=== PATIENT | female | born 1985 | race Hispanic/Latino ===

== ENCOUNTER → 2016-04-07 | Outpatient (CLI) | payer OTHER ==
--- NOTE | 2016-04-07 15:08 | REP ---
TWO-VIEW CHEST: Two views. No comparison. There is no evidence of acute infiltrate. No pleural effusion is seen. The heart is normal in size. The mediastinal silhouette is unremarkable. The visualized osseous structures are intact. IMPRESSION: No acute pulmonary disease. Signed by Ernesto Hurst MD 04/07/2016 07:40 P
== END ==
LOC: M LRY 14:17
PROVIDERS: ATTEND Nurse Practitioner Family
DX: R07.89 Other chest pain (principal)
CPT/HCPCS: 71020; 86677; 93005; G0463

== ENCOUNTER → 2016-04-07 | Outpatient (REF) | payer OTHER | LOC: M SFHCLERA 14:59 | PROVIDERS: ATTEND Nurse Practitioner Family | DX: K21.9 Gastro-esophageal reflux disease without esophagitis (principal) ==

== ENCOUNTER 2016-04-24 14:25 | Emergency (ER) | payer OTHER ==
--- NOTE | 2016-04-24 17:36 | EDDOCDS ---
Physician Documentation [facility] Name: Adelaida Ackerman Age: 31 yrs Sex: Female : 1985 Arrival Date: 04/24/2016 Time: 14:25 Bed TR7 Private MD: RUBÉN Gardner Disposition: 04/24/16 17:20 Discharged to Home/Self Care. Impression: Strain of muscle, fascia and tendon at neck level - PAIN IN NECK. - Condition is Stable. - Discharge Instructions: Sore Throat. - Medication Reconciliation, Local Pharmacy Hours form. - Follow up: Emergency Department; When: As needed; Reason: Worsening of conditions. Follow up: RUBÉN Gardner; When: 2 - 3 days; Reason: Wound/Symptom Recheck, Recheck today's complaints, Continuance of care. - Problem is new. - Symptoms are unchanged. - Notes: STREP SCREEN WAS NEGATIVE TODAY. THE CULTURE WAS SENT TO THE LAB SO IF THIS IS POSITIVE IN 1-2 DAYS, YOU WILL BE NOTIFIED OF THIS. ANY WORSENING SYMPTOMS, PLEASE RETURN TO THE ER. Historical: - Allergies: PENICILLINS; - Home Meds: 1. Synthroid 25 mcg Oral tab 1 tab once daily - PMHx: Thyroid problem; - PSHx: ; - Social history: Smoking status: Patient states was never smoker of tobacco. No barriers to communication noted, The patient speaks fluent Slovak, Speaks appropriately for age. - Family history: Not pertinent. - : The pt / caregiver states he / she is not on anticoagulants. Home medication list is obtained from the patient. - Exposure Risk Screening:: None identified. 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 3 in. (160.02 cm) (R); Pain 4/10; 14:27 Body Mass Index 31.35 (80.29 kg, 160.02 cm) lr2 MDM: 14:29 ECG WITH READING ER PHYS+CARDIAG ordered. EDMS 16:54 Strep Screen, Nursing ordered. dt4 16:54 ED course: PT STATES SON DX'D WITH STREP IN ED LAST NIGHT. DAUGHTER TODAY WITH ABD dt4 PAIN, DECREASED APPETITE. PT STATES WHILE COOKING TODAY, HAD A MOMENTARY SHARP "ELECTRIC" PAIN OVER HER LEFT CHEST AND ARM THAT LASTED "LESS THAN 1 SECOND" AND THEN BEGAN "NOT FEELING WELL SINCE THEN." STATES BILATERAL ANTERIOR NECK PAIN AND ACHY. . 16:59 GATS (NEGATIVE STREP SCREEN) Ordered. EDMS 17:06 Financial registration complete. 17:20 [facility] Payment Agreement was scanned into [employer] and attached to record. Signatures: Dispatcher MedHost EDCT Sunita Watson, RN RN srm Louisa Le, Reg Reg Eda Lu RN RN kr3 Franca Robert, KAILA BRIGHT dt4 The chart was reviewed and I authenticate all verbal orders and agree with the evaluation and treatment provided.Attachments: 17:20 [facility] Payment Agreement gb MTDD
--- NOTE | 2016-04-24 17:36 | EDDOCDS ---
Nurse's Notes [facility] Name: Adelaida Ackerman Age: 31 yrs Sex: Female : 1985 Arrival Date: 04/24/2016 Time: 14:25 Bed TR7 Private MD: RUBÉN Gardner Diagnosis: Strain of muscle, fascia and tendon at neck level-PAIN IN NECK Presentation: 04/24 14:32 Presenting complaint: Patient states: WHILE COOKING 1 HOUR AGO HAD SHOOTING PAIN LEFT kr3 ARM AND INTO UPPER LEFT CHEST CHEST. pain lasted less than 1 second. Now feeling warmth and fussy in head. Achiness in neck and no pain in chest. Aspirin was not taken prior to arrival. Adult Sepsis Screening: The patient does not have new or worsening altered mentation. Patient's respiratory rate is less than 22. Systolic blood pressure is greater than 100. Patient has a qSOFA score of 0- Negative Sepsis Screen. Suicide/Homicide risk assessment- the patient denies having any suicidal and/or homicidal ideations and does not present with any other emotional, behavioral or mental health complaints. Status: The patient is a dependent. Transition of care: patient was not received from another setting of care. 14:32 Acuity: JOVANNI Level 4 kr3 14:32 Method Of Arrival: Walkin/Carried/Asstd kr3 Triage Assessment: 14:34 General: Appears in no apparent distress, comfortable, Behavior is cooperative. Pain: kr3 Location: neck Pain currently is 3 out of 10 on a pain scale. Pt Declines HIV testing. Neurological: Level of Consciousness is awake, alert. Cardiovascular: Chest pain is described as Pain is 0 out of 10 on a pain scale. radiates Does not radiate. episodes last < 1 minute began 1 hour prior to arrival. Respiratory: Respiratory effort is even, unlabored. GI: Denies nausea, vomiting. Derm: Skin is pink, warm & dry. Musculoskeletal: Range of motion intact in all extremities. 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 Synthroid 25 mcg Oral tab 1 tab once daily - PMHx: Thyroid problem; - PSHx: ; - Social history: Smoking status: Patient states was never smoker of tobacco. No barriers to communication noted, The patient speaks fluent Bulgarian, Speaks appropriately for age. - Family history: Not pertinent. - : The pt / caregiver states he / she is not on anticoagulants. Home medication list is obtained from the patient. - Exposure Risk Screening:: None identified. Screenin:33 Screening information is obtained from the patient. Fall risk: No risks identified. srm Assistance ADL's: requires no assistance with activities of daily living. Abuse/DV Screen: The patient / caregiver reports he/she is: not in a situation that causes fear, pain or injury. Nutritional screening: No deficits noted. Advance Directives: There is no active DNR order. home support is adequate. Assessment: 17:33 General: Appears in no apparent distress, Behavior is appropriate for age, cooperative. 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 pt has full ROm to arm. EENT: Reports sore throat. Cardiovascular: Rhythm is regular. Respiratory: No deficits noted. GI: No deficits noted. Derm: No deficits noted. Vital Signs: 14:27 BP 138 / 77; Pulse 73; Resp 16; Temp 97.2(T); Pulse Ox 99% on R/A; Weight 80.29 kg (R); lr2 Height 5 ft. 3 in. (160.02 cm) (R); Pain 4/10; 14:27 Body Mass Index 31.35 (80.29 kg, 160.02 cm) lr2 Vitals: 14:25 RN notified that patient meets Red Flag criteria. lr2 14:27 Log In Time: April 24, 2016 at 14:25. lr2 ED Course: 14:26 Patient visited by Barbara Barajas. lr2 14:26 Patient moved to Waiting lr2 14:28 Jj [facility] is Private Physician. lr2 14:28 Patient moved to Pre RCE lr2 14:30 Patient moved to PD2 / lr2 14:34 Triage Initiated kr3 14:38 Patient visited by Nazanin Flores PCA. ct3 14:38 Patient moved to Pre RCE kr3 14:38 EKG done. (by ED staff). Reviewed by Lin Gonzalez MD. ct3 16:19 Patient moved to Triage 3 kr3 16:37 Franca Robert PA-C is PHCP. dt4 16:37 Lin Gonzalez MD is Attending Physician. dt4 16:37 Patient visited by Franca Robert PA-C. dt4 17:02 GATS (NEGATIVE STREP SCREEN) Sent. srm 17:18 Patient name changed from Adelaida\S\\S\Tyron\S\ to Adelaida\S\Janell\S\Tyron. EDMS 17:19 Jj [facility] is Referral Physician. dt4 17:20 [facility] Payment Agreement was scanned into [employer] and attached to record. 17:32 Patient moved to [facility] kr 17:33 The patient / caregiver is instructed regarding the plan of care and ED course. srm Accompanied by Family Member, Patient has correct armband on for positive identification. Cardiac monitoring not applicable on this patient. 17:33 No IV's were initiated during this patient's visit. No procedures done that require srm assistance. Order Results: There are currently no results for this order. Outcome: 17:20 Discharge ordered by Provider. dt4 17:33 Discharge Assessment: Patient awake, alert and oriented x 3. No cognitive and/or srm functional deficits noted. Patient verbalized understanding of disposition instructions. patient administered narcotics - no. The following High Risk Discharge criteria are identified: None. Discharged to home ambulatory, with family. Condition: stable. Discharge instructions given to patient, Instructed on discharge instructions, follow up and referral plans. medication usage, Demonstrated understanding of instructions, medications, Pt was receptive of discharge instructions/ teaching. No special radiology studies were completed. Property :Personal belongings accompany Pt. 17:35 Patient left the ED. srm Signatures: Dispatcher MedHo EDAR Sunita Watson, RN RN [facility] Louisa Le, Reg Reg Eda Lu,DOMINGA RN kr3 Nazanin Flores, CLINICAL DIRECTOR CLINICAL DIRECTOR ct3 Franca Robert PA-C PA-C dt4 Barbara Barajas lr2 MTDD
--- NOTE | 2016-04-24 19:49 | ECGEPIP ---
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
--- NOTE | 2016-04-26 18:36 | EDDOCDS ---
Physician Documentation [facility] Name: Adelaida Ackerman Age: 31 yrs Sex: Female : 1985 Arrival Date: 04/24/2016 Time: 14:25 Bed TR7 Private MD: RUBÉN Gardner Disposition: 04/24/16 17:20 Discharged to Home/Self Care. Impression: Strain of muscle, fascia and tendon at neck level - PAIN IN NECK. - Condition is Stable. - Discharge Instructions: Sore Throat. - Medication Reconciliation, Local Pharmacy Hours form. - Follow up: Emergency Department; When: As needed; Reason: Worsening of conditions. Follow up: RUBÉN Gardner; When: 2 - 3 days; Reason: Wound/Symptom Recheck, Recheck today's complaints, Continuance of care. - Problem is new. - Symptoms are unchanged. - Notes: STREP SCREEN WAS NEGATIVE TODAY. THE CULTURE WAS SENT TO THE LAB SO IF THIS IS POSITIVE IN 1-2 DAYS, YOU WILL BE NOTIFIED OF THIS. ANY WORSENING SYMPTOMS, PLEASE RETURN TO THE ER. Historical: - Allergies: PENICILLINS; - Home Meds: 1. Synthroid 25 mcg Oral tab 1 tab once daily - PMHx: Thyroid problem; - PSHx: ; - Social history: Smoking status: Patient states was never smoker of tobacco. No barriers to communication noted, The patient speaks fluent Kiswahili, Speaks appropriately for age. - Family history: Not pertinent. - : The pt / caregiver states he / she is not on anticoagulants. Home medication list is obtained from the patient. - Exposure Risk Screening:: None identified. 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 3 in. (160.02 cm) (R); Pain 4/10; 14:27 Body Mass Index 31.35 (80.29 kg, 160.02 cm) lr2 MDM: 14:29 ECG WITH READING ER PHYS+CARDIAG ordered. EDMS 16:54 Strep Screen, Nursing ordered. dt4 16:54 ED course: PT STATES SON DX'D WITH STREP IN ED LAST NIGHT. DAUGHTER TODAY WITH ABD dt4 PAIN, DECREASED APPETITE. PT STATES WHILE COOKING TODAY, HAD A MOMENTARY SHARP "ELECTRIC" PAIN OVER HER LEFT CHEST AND ARM THAT LASTED "LESS THAN 1 SECOND" AND THEN BEGAN "NOT FEELING WELL SINCE THEN." STATES BILATERAL ANTERIOR NECK PAIN AND ACHY. . 16:59 GATS (NEGATIVE STREP SCREEN) Ordered. EDMS 17:06 Financial registration complete. gb 17:20 [facility] Payment Agreement was scanned into [employer] and attached to record. gb 20:14 T-Sheet-- Draft Copy was scanned into MEDHOST and attached to record. klr 04/26 10:31 ECG/EKG was scanned into MEDHOST and attached to record. lg Signatures: Dispatcher MedHost EDCA Sunita Watson, DOMINGA ORR [facility] Louisa Le, Reg Reg gb Jenifer Masterson, Reg Reg lg Eda Lu RN RN kr3 Franca Robert, KAILA PASaray isaac4 Octavia Weber The chart was reviewed and I authenticate all verbal orders and agree with the evaluation and treatment provided.Attachments: 04/24 17:20 [facility] Payment Agreement gb 20:14 T-Sheet-- Draft Copy r 04/26 10:31 ECG/EKG lg Chart Complete MTDD
--- NOTE | 2016-04-26 18:37 | EDDOCDS ---
Nurse's Notes [facility] Name: Adelaida Ackerman Age: 31 yrs Sex: Female : 1985 Arrival Date: 04/24/2016 Time: 14:25 Bed TR7 Private MD: RUBÉN Gardner Diagnosis: Strain of muscle, fascia and tendon at neck level-PAIN IN NECK Presentation: 04/24 14:32 Presenting complaint: Patient states: WHILE COOKING 1 HOUR AGO HAD SHOOTING PAIN LEFT kr3 ARM AND INTO UPPER LEFT CHEST CHEST. pain lasted less than 1 second. Now feeling warmth and fussy in head. Achiness in neck and no pain in chest. Aspirin was not taken prior to arrival. Adult Sepsis Screening: The patient does not have new or worsening altered mentation. Patient's respiratory rate is less than 22. Systolic blood pressure is greater than 100. Patient has a qSOFA score of 0- Negative Sepsis Screen. Suicide/Homicide risk assessment- the patient denies having any suicidal and/or homicidal ideations and does not present with any other emotional, behavioral or mental health complaints. Status: The patient is a dependent. Transition of care: patient was not received from another setting of care. 14:32 Acuity: JOVANNI Level 4 kr3 14:32 Method Of Arrival: Walkin/Carried/Asstd kr3 Triage Assessment: 14:34 General: Appears in no apparent distress, comfortable, Behavior is cooperative. Pain: kr3 Location: neck Pain currently is 3 out of 10 on a pain scale. Pt Declines HIV testing. Neurological: Level of Consciousness is awake, alert. Cardiovascular: Chest pain is described as Pain is 0 out of 10 on a pain scale. radiates Does not radiate. episodes last < 1 minute began 1 hour prior to arrival. Respiratory: Respiratory effort is even, unlabored. GI: Denies nausea, vomiting. Derm: Skin is pink, warm & dry. Musculoskeletal: Range of motion intact in all extremities. 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 Synthroid 25 mcg Oral tab 1 tab once daily - PMHx: Thyroid problem; - PSHx: ; - Social history: Smoking status: Patient states was never smoker of tobacco. No barriers to communication noted, The patient speaks fluent Angolan, Speaks appropriately for age. - Family history: Not pertinent. - : The pt / caregiver states he / she is not on anticoagulants. Home medication list is obtained from the patient. - Exposure Risk Screening:: None identified. Screenin:33 Screening information is obtained from the patient. Fall risk: No risks identified. srm Assistance ADL's: requires no assistance with activities of daily living. Abuse/DV Screen: The patient / caregiver reports he/she is: not in a situation that causes fear, pain or injury. Nutritional screening: No deficits noted. Advance Directives: There is no active DNR order. home support is adequate. Assessment: 17:33 General: Appears in no apparent distress, Behavior is appropriate for age, cooperative. 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 pt has full ROm to arm. EENT: Reports sore throat. Cardiovascular: Rhythm is regular. Respiratory: No deficits noted. GI: No deficits noted. Derm: No deficits noted. Vital Signs: 14:27 BP 138 / 77; Pulse 73; Resp 16; Temp 97.2(T); Pulse Ox 99% on R/A; Weight 80.29 kg (R); lr2 Height 5 ft. 3 in. (160.02 cm) (R); Pain 4/10; 14:27 Body Mass Index 31.35 (80.29 kg, 160.02 cm) lr2 Vitals: 14:25 RN notified that patient meets Red Flag criteria. lr2 14:27 Log In Time: April 24, 2016 at 14:25. lr2 ED Course: 14:26 Patient visited by Barbara Barajas. lr2 14:26 Patient moved to Waiting lr2 14:28 Jj [facility] is Private Physician. lr2 14:28 Patient moved to Pre RCE lr2 14:30 Patient moved to PD2 / lr2 14:34 Triage Initiated kr3 14:38 Patient visited by Nazanin Flores PCA. ct3 14:38 Patient moved to Pre RCE kr3 14:38 EKG done. (by ED staff). Reviewed by Lin Gonzalez MD. ct3 16:19 Patient moved to Triage 3 kr3 16:37 Franca Robert PA-C is PHCP. dt4 16:37 Lin Gonzalez MD is Attending Physician. dt4 16:37 Patient visited by Franca Robert PA-C. dt4 17:02 GATS (NEGATIVE STREP SCREEN) Sent. srm 17:18 Patient name changed from Adelaida\S\\S\Tyron\S\ to Adelaida\S\Janell\S\Tyron. EDMS 17:19 Jj [facility] is Referral Physician. dt4 17:20 [facility] [place] Agreement was scanned into ZMP and attached to record. gb 17:32 Patient moved to TR7 kr3 17:33 The patient / caregiver is instructed regarding the plan of care and ED course. srm Accompanied by Family Member, Patient has correct armband on for positive identification. Cardiac monitoring not applicable on this patient. 17:33 No IV's were initiated during this patient's visit. No procedures done that require srm assistance. 20:06 EKG-ADULT Returned. EDMS 20:14 T-Sheet-- Draft Copy was scanned into ZMP and attached to record. r 02 10:31 ECG/EKG was scanned into ZMP and attached to record. 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 dt4 17:33 Discharge Assessment: Patient awake, alert and oriented x 3. No cognitive and/or srm functional deficits noted. Patient verbalized understanding of disposition instructions. patient administered narcotics - no. The following High Risk Discharge criteria are identified: None. Discharged to home ambulatory, with family. Condition: stable. Discharge instructions given to patient, Instructed on discharge instructions, follow up and referral plans. medication usage, Demonstrated understanding of instructions, medications, Pt was receptive of discharge instructions/ teaching. No special radiology studies were completed. Property :Personal belongings accompany Pt. 17:35 Patient left the ED. srm Signatures: Dispatcher MedHost EDMS Sunita Watson, RN RN srm Louisa Le, Reg Reg gb Jenifer Masterson, Reg Reg lg Eda Lu RN RN kr3 Nazanin Flores, CRM ARCHITECT CRM ARCHITECT ct3 Franca Robert PA-C PA-C dt4 Octavia Weber Laura lr2 Chart Complete JOHNY
--- NOTE | 2016-04-26 18:37 | EDDOCDS ---
Physician Documentation [facility] Name: Adelaida Ackerman Age: 31 yrs Sex: Female : 1985 Arrival Date: 04/24/2016 Time: 14:25 Bed TR7 Private MD: RUBÉN Gardner Disposition: 04/24/16 17:20 Discharged to Home/Self Care. Impression: Strain of muscle, fascia and tendon at neck level - PAIN IN NECK. - Condition is Stable. - Discharge Instructions: Sore Throat. - Medication Reconciliation, Local Pharmacy Hours form. - Follow up: Emergency Department; When: As needed; Reason: Worsening of conditions. Follow up: RUBÉN Gardner; When: 2 - 3 days; Reason: Wound/Symptom Recheck, Recheck today's complaints, Continuance of care. - Problem is new. - Symptoms are unchanged. - Notes: STREP SCREEN WAS NEGATIVE TODAY. THE CULTURE WAS SENT TO THE LAB SO IF THIS IS POSITIVE IN 1-2 DAYS, YOU WILL BE NOTIFIED OF THIS. ANY WORSENING SYMPTOMS, PLEASE RETURN TO THE ER. Historical: - Allergies: PENICILLINS; - Home Meds: 1. Synthroid 25 mcg Oral tab 1 tab once daily - PMHx: Thyroid problem; - PSHx: ; - Social history: Smoking status: Patient states was never smoker of tobacco. No barriers to communication noted, The patient speaks fluent Latvian, Speaks appropriately for age. - Family history: Not pertinent. - : The pt / caregiver states he / she is not on anticoagulants. Home medication list is obtained from the patient. - Exposure Risk Screening:: None identified. 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 3 in. (160.02 cm) (R); Pain 4/10; 14:27 Body Mass Index 31.35 (80.29 kg, 160.02 cm) lr2 MDM: 14:29 ECG WITH READING ER PHYS+CARDIAG ordered. EDMS 16:54 Strep Screen, Nursing ordered. dt4 16:54 ED course: PT STATES SON DX'D WITH STREP IN ED LAST NIGHT. DAUGHTER TODAY WITH ABD dt4 PAIN, DECREASED APPETITE. PT STATES WHILE COOKING TODAY, HAD A MOMENTARY SHARP "ELECTRIC" PAIN OVER HER LEFT CHEST AND ARM THAT LASTED "LESS THAN 1 SECOND" AND THEN BEGAN "NOT FEELING WELL SINCE THEN." STATES BILATERAL ANTERIOR NECK PAIN AND ACHY. . 16:59 GATS (NEGATIVE STREP SCREEN) Ordered. EDMS 17:06 Financial registration complete. gb 17:20 [facility] [place] was scanned into [employer] and attached to record. gb 20:14 T-Sheet-- Draft Copy was scanned into MEDHOST and attached to record. klr 04/26 10:31 ECG/EKG was scanned into MEDHOST and attached to record. lg Signatures: Dispatcher MedHost EDNJ Sunita Watson, DOMINGA ORR [facility] Louisa Le, Reg Reg gb Jenifer Masterson, Reg Reg lg Eda Lu RN RN kr3 Franca Robert, KAILA PASaray isaac4 Octavia Weber The chart was reviewed and I authenticate all verbal orders and agree with the evaluation and treatment provided.Attachments: 04/24 17:20 [facility] [place] gb 20:14 T-Sheet-- Draft Copy r 04/26 10:31 ECG/EKG lg Chart Complete MTDD
== END 2016-04-24 17:35 | disposition home or self-care (01) ==
LOC: M ED 14:25
DX: M54.2 Cervicalgia (principal); R07.9 Chest pain, unspecified; E03.9 Hypothyroidism, unspecified; Z79.899 Other long term (current) drug therapy; Z88.0 Allergy status to penicillin

== ENCOUNTER 2016-05-08 11:12 | Emergency (ER) | payer OTHER ==
[~2016-05-08] VITALS: Ht 160 cm; Wt 80.3 kg
[2016-05-08] MEDS ORDERED: LEVO25TA5 PO (11:42)
[2016-05-08] MEDS ORDERED: RANI15TA PO (11:43)
[2016-05-08 12:02] LABS: BASO % 0.5 % (0.0-1.0); EOS # 0.1 K/mm3 (0.0-0.50); EOS % 1.7 % (0.0-3.0); LARGE UNSTAINED CELL # 0.2 K/mm3 (0.0-0.4); LARGE UNSTAINED CELL % 1.8 % (0.0-4.0); LYMPH # 1.8 K/mm3 (1.5-4.5); LYMPH % 21.5 % (24.0-44.0); MEAN CORPUSCULAR HEMOGLOBIN 28.8 pg (27.0-33.0); MEAN CORPUSCULAR HGB CONC 33.6 g/dl (32.0-36.5); MEAN CORPUSCULAR VOLUME 85.7 fl (80.0-96.0); MONO # 0.4 K/mm3 (0.0-0.8); MONO % 4.5 % (0.0-5.0); NEUTROPHILS # 5.8 K/mm3 (1.8-7.7); PLATELET COUNT, AUTOMATED 354 k/mm3 (150-450); RED CELL DISTRIBUTION WIDTH 12.5 % (11.5-14.5); WHITE BLOOD COUNT 8.3 K/mm3 (4.0-10.0)
[2016-05-08 12:15] LABS: ANION GAP 7 MEQ/L (8-16); BLOOD UREA NITROGEN 14 MG/DL (7-18); CALCIUM LEVEL 8.8 MG/DL (8.5-10.1); CARBON DIOXIDE LEVEL 26 MEQ/L (21-32); CHLORIDE LEVEL 106 MEQ/L (98-107); CREATININE FOR GFR 0.56 MG/DL (0.55-1.02); GLOMERULAR FILTRATION RATE > 60.0 (>60); GLUCOSE, FASTING 88 MG/DL (70-105); POTASSIUM SERUM 4.7 MEQ/L (3.5-5.1); SODIUM LEVEL 139 MEQ/L (136-145)
--- NOTE | 2016-05-08 12:35 | REP ---
CHEST, TWO VIEWS: COMPARISON: 04/07/2016. There is no evidence of acute infiltrate. No pleural effusion is seen. The heart is normal in size. The mediastinal silhouette is unremarkable. The visualized osseous structures are intact. IMPRESSION: No acute pulmonary disease. Signed by Ernesto Hurst MD 05/08/2016 07:59 P
[2016-05-08 12:51] VITALS: BP 113/71
--- NOTE | 2016-05-09 20:06 | ECGEPIP ---
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
== END 2016-05-08 12:55 | disposition home or self-care (01) ==
LOC: M ED 12:30
DX: R07.89 Other chest pain (principal); E78.5 Hyperlipidemia, unspecified; Z87.891 Personal history of nicotine dependence; K21.9 Gastro-esophageal reflux disease without esophagitis; E03.9 Hypothyroidism, unspecified; Z79.899 Other long term (current) drug therapy

== ENCOUNTER → 2016-09-26 | Outpatient (REF) | payer OTHER ==
[~2016-09-26] MED LIST: IBUP80TA PO; LEVO25TA5 PO; RANI15TA PO; ROBA500T PO
[2016-09-26 22:21] LABS: BASO # 0.1 K/mm3 (0.0-0.2); BASO % 1.2 % (0.0-1.0); EOS # 0.2 K/mm3 (0.0-0.50); EOS % 2.3 % (0.0-3.0); LARGE UNSTAINED CELL # 0.1 K/mm3 (0.0-0.4); LARGE UNSTAINED CELL % 1.5 % (0.0-4.0); LYMPH # 2.1 K/mm3 (1.5-4.5); LYMPH % 27.4 % (24.0-44.0); MEAN CORPUSCULAR HEMOGLOBIN 29.2 pg (27.0-33.0); MEAN CORPUSCULAR VOLUME 85.9 fl (80.0-96.0); MONO # 0.5 K/mm3 (0.0-0.8); MONO % 6.9 % (0.0-5.0); NEUTROPHILS # 4.6 K/mm3 (1.8-7.7); NEUTROPHILS % 60.7 % (36.0-66.0); PLATELET COUNT, AUTOMATED 349 k/mm3 (150-450); RED CELL DISTRIBUTION WIDTH 12.6 % (11.5-14.5); WHITE BLOOD COUNT 7.6 K/mm3 (4.0-10.0)
[2016-09-26 22:34] LABS: ALBUMIN 3.9 GM/DL (3.2-5.2); ALBUMIN/GLOBULIN RATIO 1.26 (1.00-1.93); ALKALINE PHOSPHATASE 58 U/L (45-117); ALT/SGPT 37 U/L (12-78); ANION GAP 7 MEQ/L (8-16); AST/SGOT 15 U/L (15-37); BILIRUBIN,TOTAL 0.3 MG/DL (0.2-1.0); BLOOD UREA NITROGEN 12 MG/DL (7-18); CALCIUM LEVEL 9.3 MG/DL (8.5-10.1); CARBON DIOXIDE LEVEL 27 MEQ/L (21-32); CHLORIDE LEVEL 105 MEQ/L (98-107); GLOMERULAR FILTRATION RATE > 60.0 (>60); GLUCOSE, FASTING 80 MG/DL (70-105); POTASSIUM SERUM 4.4 MEQ/L (3.5-5.1); SODIUM LEVEL 139 MEQ/L (136-145)
[2016-09-26 22:45] LABS: ERYTHROCYTE SEDIMENTATION RATE 17 mm/hr (0-20)
[2016-09-30 00:07] LABS: Lyme Disease IgG/IgM Antibodie <0.91 ISR (0.00-0.90); Lyme Disease IgM Ab Quantitati <0.80 index (0.00-0.79)
== END ==
LOC: M LAB REF 10:10
PROVIDERS: ATTEND Physician Assistant
DX: R53.83 Other fatigue (principal); R11.0 Nausea; M25.50 Pain in unspecified joint

== ENCOUNTER 2016-10-10 10:29 | Emergency (ER) | payer OTHER ==
[~2016-10-10] VITALS: Ht 162.6 cm; Wt 89.1 kg
[~2016-10-10 10:29] MED LIST changes: -IBUP80TA PO; -ROBA500T PO
[2016-10-10] MEDS ORDERED: IBUPROFEN 800 MG TAB PO ONE (11:15)
[2016-10-10 12:31] VITALS: BP 129/69
[2016-10-10] MEDS ORDERED: IBUP80TA PO (12:42)
[2016-10-10] MEDS ORDERED: ROBA500T PO (12:42)
--- NOTE | 2016-10-10 13:24 | REP ---
THORACIC SPINE COMPLETE: 10/10/2016. Clinical history: Nontraumatic pain. Comparison chest x-ray 05/08/2016. Findings: Three view show no evidence of scoliosis of the thoracic spine. The pedicles, spinous and transverse processes were intact. Posterior rib articulations and medial clavicles intact. Paraspinal lines unremarkable. The lateral view shows no compression deformity, disc space narrowing or destructive lesion. Cervicothoracic junction aligns normally. Impression: 1. Normal thoracic spine radiographs. Signed by Dom Barnes MD 10/10/2016 06:08 P
--- NOTE | 2016-10-10 13:51 | REP ---
LUMBAR SPINE COMPLETE: 10/10/2016. Clinical history: Nontraumatic back pain. No prior study. Findings: Five views are provided. Sacralization of transverse processes of L5 noted as anatomic variation short elongated transverse processes of the upper most non-rib bearing vertebral body are anatomic variation. There are six non-rib bearing vertebral bodies. This uppermost body will be described as transitional for discussion purposes. Pedicles, spinous and other transverse processes were intact. The normal lordosis is slightly reduced but no spondylolysis, spondylolisthesis, disc space narrowing or compression deformity noted. Impression: 1. Mild loss of the normal lumbar lordosis may reflect some spasm. There is sacralization of the transverse processes of L5. No spondylolysis, spondylolisthesis or other significant finding. No compression deformity or disc space narrowing. Signed by Dom Barnes MD 10/10/2016 06:09 P
== END 2016-10-10 12:47 | disposition home or self-care (01) ==
LOC: M ED 10:29
DX: S39.012A Strain of muscle, fascia and tendon of lower back, initial encounter (principal); M65.842 Other synovitis and tenosynovitis, left hand; M65.841 Other synovitis and tenosynovitis, right hand; X50.9XXA Other and unspecified overexertion or strenuous movements or postures, initial encounter; Y92.019 Unspecified place in single-family (private) house as the place of occurrence of the external cause; Y93.89 Activity, other specified; Y99.8 Other external cause status; E07.9 Disorder of thyroid, unspecified; Z87.891 Personal history of nicotine dependence; Z79.899 Other long term (current) drug therapy; Z88.0 Allergy status to penicillin

== ENCOUNTER 2016-10-15 23:18 | Emergency (ER) | payer OTHER ==
[~2016-10-15] VITALS: Ht 162.6 cm; Wt 84.5 kg
[2016-10-15 23:18] VITALS: BP 125/89
[~2016-10-15 23:18] MED LIST changes: +IBUP80TA PO; +ROBA500T PO
== END 2016-10-16 05:01 | disposition left against medical advice (07) ==
LOC: M ED 23:18
DX: Z53.29 Procedure and treatment not carried out because of patient's decision for other reasons (principal)

== ENCOUNTER → 2017-04-09 | Outpatient (CLI) | payer OTHER | LOC: M LRY 15:03 | DX: S69.91XA Unspecified injury of right wrist, hand and finger(s), initial encounter (principal); X58.XXXA Exposure to other specified factors, initial encounter; Y92.89 Other specified places as the place of occurrence of the external cause | CPT/HCPCS: 12001; 73140 ==

== ENCOUNTER 2017-06-06 16:49 | Emergency (ER) | payer OTHER ==
[2017-06-06] MEDS: ACETAMINOPHEN TAB 650MG DOSE (2X325MG) PO (19:45)
[2017-06-06 22:22] LABS: INFLUENZA A AMPLIFICATION POSITIVE (NEGATIVE); INFLUENZA B AMPLIFICATION NEGATIVE (NEGATIVE)
== END 2017-06-06 23:15 | disposition home or self-care (01) ==
LOC: M ED 16:49
DX: J09.X2 Influenza due to identified novel influenza A virus with other respiratory manifestations (principal); K21.9 Gastro-esophageal reflux disease without esophagitis; E03.9 Hypothyroidism, unspecified; Z88.0 Allergy status to penicillin; Z79.890 Hormone replacement therapy
CPT/HCPCS: 71046

== ENCOUNTER → 2017-07-15 | Outpatient (REF) | payer OTHER ==
[2017-07-15 11:23] LABS: INFLUENZA A AMPLIFICATION NEGATIVE (NEGATIVE); INFLUENZA B AMPLIFICATION NEGATIVE (NEGATIVE)
== END ==
LOC: M LAB REF 10:40
DX: J11.1 Influenza due to unidentified influenza virus with other respiratory manifestations (principal)
CPT/HCPCS: 87502

== ENCOUNTER → 2018-02-05 | Outpatient (REF) | payer OTHER | LOC: M SFHCLERA 17:25 | DX: J02.9 Acute pharyngitis, unspecified (principal) ==